=== PATIENT | male | born 1990 | race African-American/Black ===

== ENCOUNTER 2022-02-09 23:23 | Emergency (ER) | payer MEDICAID ==
[~2022-02-09] VITALS: Ht 182.9 cm; Wt 75.0 kg
[2022-02-10 00:45] VITALS: BP 121/74
== END 2022-02-10 03:20 | disposition home or self-care (01) ==
LOC: ER 23:23
DX: S51.012A Laceration without foreign body of left elbow, initial encounter (principal); R41.82 Altered mental status, unspecified; F91.8 Other conduct disorders; X58.XXXA Exposure to other specified factors, initial encounter; Y93.9 Activity, unspecified; Y92.9 Unspecified place or not applicable; R03.0 Elevated blood-pressure reading, without diagnosis of hypertension
CPT/HCPCS: 99283

== ENCOUNTER 2022-02-10 10:53 | Emergency (ER) | payer MEDICAID ==
[~2022-02-10] VITALS: Ht 172.7 cm; Wt 78.0 kg
[2022-02-10 11:05] VITALS: BP 126/76
== END 2022-02-10 14:18 | disposition left against medical advice (07) ==
LOC: ER 10:53
DX: Z53.21 Procedure and treatment not carried out due to patient leaving prior to being seen by health care provider (principal)